=== PATIENT | male | born 1945 | race Caucasian/White ===

== ENCOUNTER → 2017-01-20 | Outpatient (CLI) | payer MEDICARE, BC ==
[~2017-01-20] MED LIST: ASPIRIN E.C. 8181 MG PO; DITROPAN XL15 MG; ULTRAM 50MG TAB50 MG PO; ZOCOR 10MG10 MG PO
== END ==
LOC: COL.RAD 09:55
DX: I67.82 Cerebral ischemia (principal); G31.9 Degenerative disease of nervous system, unspecified; R43.0 Anosmia
CPT/HCPCS: A9585

== ENCOUNTER 2017-11-10 08:15 | Outpatient (RCR) | payer MEDICARE, BC ==
[2017-12-15] MEDS ORDERED: MULTI VITAMINS1 TAB PO (09:31)
== END 2017-12-28 | disposition home or self-care (01) ==
LOC: WSST
DX: R41.3 Other amnesia (principal)
CPT/HCPCS: G9168-GN; G9169-GN

== ENCOUNTER 2017-12-20 09:21 | Outpatient (CLI) | payer MEDICARE, BC ==
[~2017-12-20] VITALS: Ht 177.8 cm; Wt 95.4 kg
[2017-12-20] VITALS (12 sets, daily range): BP systolic 119–165; BP diastolic 76–109; PULSE 56–79; TEMP 97.6
[~2017-12-20 09:21] MED LIST changes: +MULTI VITAMINS1 TAB PO
[2017-12-20 11:10] LABS: CSF MONONUCLEAR 0 % (70-100); CSF POLYMORPHONUCLEAR 100 % (0-6)
[2017-12-20 11:17] LABS: CSF RBC 2000 /mm3 (0-0)
[2017-12-20 11:23] LABS: CSF COLOR OTHER
[2017-12-20 11:31] LABS: GLUCOSE,CSF 50 mg/dL (40-70); TOTAL PROTEIN,CSF 50 mg/dL (15-45)
[2017-12-20 14:48] LABS: CSF APPEARANCE HAZY
== END 2017-12-20 13:54 | disposition home or self-care (01) ==
LOC: COL.RAD 09:21
PROVIDERS: Internal Medicine
DX: G91.9 Hydrocephalus, unspecified (principal); G30.1 Alzheimer's disease with late onset; F02.80 Dementia in other diseases classified elsewhere, unspecified severity, without behavioral disturbance, psychotic disturbance, mood disturbance, and anxiety; N32.81 Overactive bladder

== ENCOUNTER 2017-12-22 09:30 | Outpatient (RCR) | payer MEDICARE, BC | END 2017-12-24 08:33 | disposition home or self-care (01) | LOC: WSPT 09:30 | DX: G91.9 Hydrocephalus, unspecified (principal) | CPT/HCPCS: G8978-GP; G8979-GP; G8980-GP ==

== ENCOUNTER 2018-01-14 05:19 | Emergency (ER) | payer MEDICARE, BC ==
[~2018-01-14] VITALS: Ht 180.3 cm; Wt 95.5 kg
[2018-01-14 05:25] VITALS: BP 148/71; PULSE 75; TEMP 98
== END 2018-01-14 06:43 | disposition home or self-care (01) ==
LOC: COL.ER 05:19
DX: M62.838 Other muscle spasm (principal); Z79.82 Long term (current) use of aspirin
CPT/HCPCS: J1885

== ENCOUNTER → 2018-07-06 | Outpatient (CLI) | payer MEDICARE, BC | LOC: COL.LAB 14:04 | DX: J45.991 Cough variant asthma (principal) ==

== ENCOUNTER 2023-04-29 16:12 | Emergency (ER) | payer MEDICARE, BC ==
[~2023-04-29] VITALS: Ht 175.3 cm; Wt 85.9 kg
[~2023-04-29 16:12] MED LIST changes: +AMOXICILLIN 8751 TAB PO; +ARICEPT10 MG PO; +CEPHALEXIN500 M1 PO; +FLOMAX 0.40.4 MG/CAP PO; +NAMENDA 10MG TA10 MG PO; +VITAMIN D 400400 IU PO
[2023-04-29 16:21] VITALS: TEMP 98.6
[2023-04-29 17:17] LABS: BASO # 0.1 K/mm3 (0.0-0.2); BASO % 0.6 % (0.0-2.0); EOS # 0.1 K/mm3 (0.0-0.7); EOS % 1.7 % (0.0-4.0); GRAN # 5.6 K/mm3 (1.4-6.5); GRAN % 65.8 % (42.2-75.2); HEMATOCRIT 45.5 % (42.0-52.0); HEMOGLOBIN 14.9 g/dl (13.5-18.0); LYMPH # 1.8 K/mm3 (1.2-3.4); LYMPH % 21.6 % (20.0-51.0); MEAN CELL VOLUME 84 fl (80.0-100.0); MEAN CORPUSCULAR HEMOGLOBIN 28 pg (27-31); MEAN CORPUSCULAR HGB CONC 33 g/dl (33.0-37.0); MEAN PLATELET VOLUME 9.6 fl (7.4-10.4); MONO # 0.8 K/mm3 (0.1-0.6); MONO % 9.8 % (1.7-9.3); PLATELET COUNT 212 K/mm3 (130-400); REDCELL DISTRIBUTION WIDTH-CV 13.5 % (11.5-14.5)
[2023-04-29 17:27] LABS: ALANINE AMINOTRANSFERASE 17 U/L (0-55); ALBUMIN 3.7 gm/dL (3.4-4.8); ALKALINE PHOSPHATASE 63 U/L (40-150); ANION GAP 9 mmol/L (7-16); AST,SGOT 18 U/L (5-34); BILIRUBIN,TOTAL 0.5 mg/dL (0.2-1.2); BLOOD UREA NITROGEN 22 mg/dL (8-26); CALCIUM 9.2 mg/dL (8.4-10.2); CARBON DIOXIDE 24 mmol/L (23-31); CHLORIDE 106 mmol/L (98-107); CREATININE, serum 0.89 mg/dL (0.72-1.25); GLUCOSE 101 mg/dL (70-99); LIPASE 33 U/L (8-78); POTASSIUM 3.9 mmol/L (3.5-4.5); SODIUM 139 mmol/L (136-145); TOTAL PROTEIN 6.8 gm/dL (6.2-8.1)
[2023-04-29 17:42] LABS: TROPONIN-I < 0.010 ng/mL (0.00-0.033)
[2023-04-29 17:45] VITALS: BP 165/95; PULSE 61
[2023-04-29 17:56] LABS: COLLECTION METHOD CLEAN CATCH
[2023-04-29 18:01] LABS: PH 5.5 (5.0-8.5); URINE APPEARANCE Clear (CLEAR/HAZY); URINE BLOOD TRACE-INTACT (NEGATIVE); URINE COLOR Yellow (YELLOW); URINE GLUCOSE Negative (NEGATIVE); URINE KETONE 1+ (NEGATIVE); URINE NITRATE Negative (NEGATIVE); URINE PROTEIN(semi-quant) Negative (NEGATIVE)
[2023-04-29 18:03] LABS: MUCOUS Present (NOT PRESENT); SQUAMOUS EPITHELIAL 0-2 /hpf (0-10); URINE BACTERIA None Seen /hpf (NONE SEEN); URINE RBC 0-2 /hpf (0-2)
[2023-05-03] MEDS ORDERED: CEPHALEXIN500 M1 PO (16:30)
== END 2023-04-29 17:50 | disposition home or self-care (01) ==
LOC: COL.ER 16:12
PROVIDERS: Emergency Medicine
DX: R53.81 Other malaise (principal); Z28.310 Unvaccinated for COVID-19

== ENCOUNTER 2024-07-13 16:35 | Emergency (ER) | payer MEDICARE, BC ==
[~2024-07-13] VITALS: Ht 182.9 cm; Wt 78.4 kg
[2024-07-13 16:41] VITALS: TEMP 98.5
[2024-07-13] MEDS ORDERED: NS 1,000 ML IV ONE (17:30)
[2024-07-13 17:43] LABS: BASO % 0.4 % (0.0-2.0); EOS # 0.1 K/mm3 (0.0-0.7); EOS % 1.1 % (0.0-4.0); GRAN # 8.5 K/mm3 (1.4-6.5); GRAN % 76.4 % (42.2-75.2); HEMATOCRIT 43.9 % (42.0-52.0); HEMOGLOBIN 14.3 g/dl (13.5-18.0); LYMPH # 1.4 K/mm3 (1.2-3.4); LYMPH % 12.4 % (20.0-51.0); MEAN CELL VOLUME 86 fl (80.0-100.0); MEAN CORPUSCULAR HEMOGLOBIN 28 pg (27-31); MEAN CORPUSCULAR HGB CONC 33 g/dl (33.0-37.0); MEAN PLATELET VOLUME 8.7 fl (7.4-10.4); MONO % 8.9 % (1.7-9.3); PLATELET COUNT 218 K/mm3 (130-400); RED BLOOD COUNT 5.08 M/mm3 (4.20-5.60); REDCELL DISTRIBUTION WIDTH-CV 13.2 % (11.5-14.5)
[2024-07-13 18:05] LABS: ALBUMIN 3.6 g/dL (3.4-4.8); BILIRUBIN,TOTAL 0.4 mg/dL (0.2-1.2); CALCIUM 9.2 mg/dL (8.4-10.2); CREATININE, serum 1.17 mg/dL (0.72-1.25); POTASSIUM 4.4 mEq/L (3.5-4.5); TOTAL PROTEIN 6.9 g/dl (6.2-8.1)
[2024-07-13 18:49] VITALS: BP 134/75; PULSE 65
== END 2024-07-13 18:49 | disposition home or self-care (01) ==
LOC: COL.ER 16:35
PROVIDERS: Physician Assistant
DX: T65.891A Toxic effect of other specified substances, accidental (unintentional), initial encounter (principal)
CPT/HCPCS: J7030

== ENCOUNTER 2024-08-06 16:11 | Emergency (ER) | payer MEDICARE, BC ==
[~2024-08-06] VITALS: Ht 180.3 cm; Wt 109.1 kg
[2024-08-06 16:12] VITALS: TEMP 98.5
[2024-08-06 16:55] LABS: BASO % 0.4 % (0.0-2.0); EOS # 0.1 K/mm3 (0.0-0.7); EOS % 1.4 % (0.0-4.0); GRAN # 7.1 K/mm3 (1.4-6.5); GRAN % 74.3 % (42.2-75.2); HEMATOCRIT 41.6 % (42.0-52.0); HEMOGLOBIN 13.4 g/dl (13.5-18.0); LYMPH # 1.4 K/mm3 (1.2-3.4); LYMPH % 14.2 % (20.0-51.0); MEAN CELL VOLUME 86 fl (80.0-100.0); MEAN CORPUSCULAR HEMOGLOBIN 28 pg (27-31); MEAN CORPUSCULAR HGB CONC 32 g/dl (33.0-37.0); MEAN PLATELET VOLUME 9.3 fl (7.4-10.4); MONO # 0.8 K/mm3 (0.1-0.6); MONO % 8.7 % (1.7-9.3); PLATELET COUNT 205 K/mm3 (130-400); RED BLOOD COUNT 4.82 M/mm3 (4.20-5.60); REDCELL DISTRIBUTION WIDTH-CV 13.5 % (11.5-14.5)
[2024-08-06 17:09] LABS: ALBUMIN 3.6 g/dL (3.4-4.8); CALCIUM 8.6 mg/dL (8.4-10.2); CREATININE, serum 0.88 mg/dL (0.72-1.25); POTASSIUM 4.4 mEq/L (3.5-4.5); TOTAL PROTEIN 6.5 g/dl (6.2-8.1)
[2024-08-06 17:17] LABS: COLLECTION METHOD CLEAN CATCH
[2024-08-06 17:17] LABS: BILIRUBIN,TOTAL 0.5 mg/dL (0.2-1.2)
[2024-08-06 17:26] LABS: PH 5.5 (5.0-8.5); URINE APPEARANCE CLEAR (CLEAR/HAZY); URINE BLOOD NEGATIVE (NEGATIVE); URINE COLOR YELLOW (YELLOW); URINE GLUCOSE NEGATIVE (NEGATIVE); URINE KETONE TRACE (NEGATIVE); URINE NITRATE NEGATIVE (NEGATIVE); URINE PROTEIN(semi-quant) NEGATIVE (NEGATIVE)
[2024-08-06 17:36] LABS: MUCOUS PRESENT (NOT PRESENT); SQUAMOUS EPITHELIAL 0-2 /hpf (0-10); URINE BACTERIA OCCASIONAL /hpf (NONE SEEN); URINE RBC NONE SEEN /hpf (0-2); URINE WBC 0-2 /hpf (0-2)
[2024-08-06 17:37] VITALS: BP 147/87; PULSE 66
== END 2024-08-06 18:02 | disposition home or self-care (01) ==
LOC: COL.ER 16:11
PROVIDERS: Family Medicine
DX: F03.90 Unspecified dementia, unspecified severity, without behavioral disturbance, psychotic disturbance, mood disturbance, and anxiety (principal); W18.30XA Fall on same level, unspecified, initial encounter; Y92.009 Unspecified place in unspecified non-institutional (private) residence as the place of occurrence of the external cause

== ENCOUNTER 2024-09-12 11:48 | Outpatient (CLI) | payer MEDICARE, BC ==
[~2024-09-12] VITALS: Ht 177.8 cm; Wt 90.9 kg
[2024-09-12] MEDS ORDERED: TOPROL XL 25MG25 MG PO (12:31)
[2024-09-12 12:41] VITALS: BP 113/66; PULSE 68; TEMP 97.3
[2024-09-12] MEDS ORDERED: Lidocaine 2% (20 MG/ML) 20 ML UROJET UR ONE (14:49)
[2024-09-12 15:00] VITALS: BP 120/70; PULSE 59; TEMP 97.5
--- NOTE | 2024-09-12 16:13 | NUR ---
1415: PT ASSISTED TO THE BEDSIDE COMMODE AND URINATED 200ML OF URINE. 1500: BEDSIDE CYSTOSCOPY COMPLETE. AT THIS TIME. REPORT RECEIVED FROM [facility] FU. VSS. RESTING IN COT. , [place], AT BEDSIDE. 1513: DISCHARGE INSTRUCTIONS DONE AT THIS TIME. PT STATED UNDERSTANDING OF DISCHARGE AND FOLLOW-UP INSTRUCTIONS. DISCHARGE PAPERWORK GIVEN TO . ASSISTED PT WITH DRESSSING X2 ASSIST. AMBULATED TO WHEELCHAIR X2 ASSIST. 1530: PT OFF UNIT AT THIS TIME VIA WHEELCHAIR. PT DISCHARGED TO HOME WITH VIA PERSONAL VEHICLE.
== END 2024-09-12 15:30 | disposition home or self-care (01) ==
LOC: SDCO 11:48
DX: R31.1 Benign essential microscopic hematuria (principal); N39.42 Incontinence without sensory awareness; Z79.82 Long term (current) use of aspirin; Z87.891 Personal history of nicotine dependence; Z85.46 Personal history of malignant neoplasm of prostate; Z90.79 Acquired absence of other genital organ(s)

== ENCOUNTER 2024-09-21 10:15 | Emergency (ER) | payer MEDICARE, BC ==
[~2024-09-21] VITALS: Ht 175.3 cm; Wt 75.4 kg
[~2024-09-21 10:15] MED LIST changes: +TOPROL XL 25MG25 MG PO
[2024-09-21 10:18] VITALS: TEMP 98
[2024-09-21 11:51] LABS: ALBUMIN 3.9 g/dL (3.4-4.8); BILIRUBIN,TOTAL 1.1 mg/dL (0.2-1.2); CALCIUM 8.9 mg/dL (8.4-10.2); CREATININE, serum 0.98 mg/dL (0.72-1.25); POTASSIUM 4.3 mEq/L (3.5-4.5); TOTAL PROTEIN 7.1 g/dl (6.2-8.1)
[2024-09-21 11:56] LABS: COLLECTION METHOD CATHETER
[2024-09-21 12:02] LABS: URINE APPEARANCE CLEAR (CLEAR/HAZY); URINE BLOOD NEGATIVE (NEGATIVE); URINE COLOR Dark Yellow (YELLOW); URINE GLUCOSE NEGATIVE (NEGATIVE); URINE KETONE 3+ (NEGATIVE); URINE NITRATE NEGATIVE (NEGATIVE); URINE PROTEIN(semi-quant) TRACE (NEGATIVE)
[2024-09-21 12:21] LABS: BASO # 0.1 K/mm3 (0.0-0.2); BASO % 0.3 % (0.0-2.0); EOS % 0.1 % (0.0-4.0); GRAN # 13.7 K/mm3 (1.4-6.5); GRAN % 84.6 % (42.2-75.2); HEMATOCRIT 41.2 % (42.0-52.0); HEMOGLOBIN 13.8 g/dl (13.5-18.0); LYMPH # 1.1 K/mm3 (1.2-3.4); LYMPH % 6.8 % (20.0-51.0); MEAN CELL VOLUME 85 fl (80.0-100.0); MEAN CORPUSCULAR HEMOGLOBIN 29 pg (27-31); MEAN CORPUSCULAR HGB CONC 34 g/dl (33.0-37.0); MEAN PLATELET VOLUME 9.2 fl (7.4-10.4); MONO # 1.2 K/mm3 (0.1-0.6); MONO % 7.6 % (1.7-9.3); PLATELET COUNT 170 K/mm3 (130-400); RED BLOOD COUNT 4.83 M/mm3 (4.20-5.60); REDCELL DISTRIBUTION WIDTH-CV 13.2 % (11.5-14.5)
[2024-09-21] MEDS ORDERED: NS 1,000 ML IV ONE (13:30)
[2024-09-21] MEDS ORDERED: LORazepam 2 MG/ML 1 ML VIAL IV ONE (13:30)
[2024-09-21] MEDS ORDERED: Iohexol 300 - 100 ML VIAL IV ONE (14:27)
[2024-09-21] MEDS ORDERED: NS 100 ML IV SCH (14:42)
[2024-09-21] MEDS ORDERED: droPERidol 2.5 MG/ML 2 ML VIAL IV ONE (15:00)
[2024-09-21] MEDS ORDERED: AMOXICILLIN 8751 TAB PO (16:05)
[2024-09-21 16:20] VITALS: BP 147/87; PULSE 83
[2024-09-25] MEDS ORDERED: ZYPREXA ZYDIS5 MG PO (11:12)
== END 2024-09-21 16:20 | disposition home or self-care (01) ==
LOC: COL.ER 10:15
PROVIDERS: Physician Assistant
DX: G30.9 Alzheimer's disease, unspecified (principal); F02.80 Dementia in other diseases classified elsewhere, unspecified severity, without behavioral disturbance, psychotic disturbance, mood disturbance, and anxiety; D72.829 Elevated white blood cell count, unspecified; R29.6 Repeated falls
CPT/HCPCS: J1790; J2060; Q9967